=== PATIENT | female | born 1940 | race Caucasian/White ===

== ENCOUNTER → 2017-03-23 | Day surgery (SDC) | payer MEDICARE, OTHER ==
--- NOTE | 2017-03-23 10:06 | MMO ---
STEREOTACTIC BREAST BIOPSY WITH MAMMOGRAPHIC GUIDANCE SPECIMEN RADIOGRAPH POSTPROCEDURE MAMMOGRAM: Date: 03/23/17 PREPROCEDURE DIAGNOSIS: Right breast calcifications. POSTPROCEDURE DIAGNOSIS: Right breast calcifications. PROCEDURE: Stereotactic biopsy of right breast calcifications using mammographic guidance. LEAD WAREHOUSE ASSOCIATE: Dr. Magallanes. COMPLICATIONS: None. SPECIMENS: Six 10 gauge vacuum-assisted core biopsy specimens of right breast calcifications. ANESTHESIA: 10 mL buffered 1% lidocaine. TECHNIQUE: Prior to the procedure, the risks and benefits of stereotactic biopsy of the right breast calcificati ons were explained to the patient and she consented fully to the procedure. The patient's breast was placed in compression with approach from above. The calcifications were loca lized by the stereotactic machine. The upper aspect of the breast was prepped with Betadine. Lidocaine used to anesthetize the skin and soft tissues surrounding the calcifications. A small skin incision was made allowing for passage of the biopsy needle. This was then placed using stereotactic guidance into the region of the calcifications. Six 10 gauge vacuum-assisted core biopsy specimens we re obtained. A mammogram of surgical specimen showed calcifications within at least two of the surgical specimens. The needle was removed and pressure was held to maintain hemostasis. Postprocedure mammogram was performed showing no residual calcifications in the right breast. Biopsy clip was at the biopsy site where the calcifications previously were present. IMPRESSION: Status post successful stereotactic biopsy of right breast calcifications. POS: JERRY
== END ==
LOC: MAMMO 07:13
PROVIDERS: ATTEND Internal Medicine
PROC: 0HBT3ZX Excision of Right Breast, Percutaneous Approach, Diagnostic (ICD-10-PCS; principal; 2017-03-23)
DX: R92.1 Mammographic calcification found on diagnostic imaging of breast (principal)
CPT/HCPCS: 19081; 76098; 88305; G0206